=== PATIENT | female | born 1980 | race Hispanic/Latino ===

== ENCOUNTER → 2016-04-23 | Outpatient (CLI) | payer OTHER ==
--- NOTE | 2016-04-23 12:45 | REP ---
DIGITAL DIAGNOSTIC BILATERAL MAMMOGRAPHY WITH CAD AND FOCUSED BILATERAL SONOGRAPHY: HISTORY: 35-year-old patient with a tender left breast mass at the 12 -o'clock position to 2 o'clock position and a tender right breast mass in the 1-o'clock position. No comparison imaging. MAMMOGRAPHIC FINDINGS: A skin marker is affixed to the skin at the site of the palpable mass on each side. Standard mammographic views are augmented by magnified focal spot compression CC, MLO and true MLO views of each breast. The breast parenchyma is extremely dense in a pattern which inhibits the sensitivity of mammography. No mass lesion is seen. No spiculation is observed on either side either at the site of the palpable lump or elsewhere in either breast. No worrisome skin change is seen. No microcalcifications are observed. No mammographic abnormality is seen. SONOGRAPHIC FINDINGS: Focused bilateral sonography is performed. The right breast is scanned at 1 o'clock position. A 1.2 x 1.1 x 0.6 cm cyst is seen within heterogeneous fibroglandular background echotexture 1.3 cm from the nipple. The left breast is scanned at 2 o'clock position in the area of palpable lump and a 0.8 x 0.5 x 0.5 cm cyst is seen within an echodense band of heterogeneous fibroglandular tissue 2.0 cm from the nipple. IMPRESSION: BIRADS category 2 benign bilateral breast imaging. Cysts are observed bilaterally at the site of the palpable lump. This negative report should not dissuade one from biopsy of a palpable lump depending on its clinical characteristics. Clinical follow-up is advised. BI-RADS/ACR category 2 mammogram. Benign finding(s). Routine annual screening mammography (for women over age 40). This mammogram was interpreted with the aid of an FDA-approved computer-aided detection system. The patient states she/he had a clinical breast exam in March 2016. The patient letter being requested is M2 . Signed by Kevin Nunes MD 04/23/2016 12:50 P
== END ==
LOC: M RAD 10:18
PROVIDERS: ATTEND Nurse Practitioner Women's Health
DX: N60.01 Solitary cyst of right breast (principal)

== ENCOUNTER 2016-06-19 06:53 | Outpatient (RCR) | payer OTHER | END 2016-06-21 | LOC: M ST 06:53 | PROVIDERS: ATTEND Otolaryngology | DX: R49.0 Dysphonia (principal) ==

== ENCOUNTER 2016-07-17 07:00 | Outpatient (RCR) | payer OTHER | END 2016-07-21 | LOC: M ST 07:00 | PROVIDERS: ATTEND Otolaryngology | DX: R49.0 Dysphonia (principal) ==

== ENCOUNTER 2016-08-12 07:00 | Outpatient (RCR) | payer OTHER | END 2016-08-21 | LOC: M ST 07:00 | PROVIDERS: ATTEND Otolaryngology | DX: R49.0 Dysphonia (principal) ==

== ENCOUNTER 2016-09-16 06:00 | Outpatient (RCR) | payer OTHER | END 2016-09-20 | LOC: M ST 06:00 | PROVIDERS: ATTEND Otolaryngology | DX: R49.0 Dysphonia (principal) ==

== ENCOUNTER 2016-09-27 07:55 | Outpatient (RCR) | payer OTHER | END 2016-10-21 | LOC: M ST 07:55 | PROVIDERS: ATTEND Otolaryngology | DX: R49.0 Dysphonia (principal) ==

== ENCOUNTER → 2017-10-14 | Outpatient (CLI) | payer OTHER | LOC: M RAD 08:32 | DX: R10.11 Right upper quadrant pain (principal) | CPT/HCPCS: J2805 ==